=== PATIENT | female | born 1950 | race American Indian/Alaskan Native ===

== ENCOUNTER 2017-01-29 08:19 | Outpatient (CLI) | payer OTHER ==
--- NOTE | 2017-01-29 09:00 | Mammography Report ---
Bilateral digital screening mammogram with CAD. Comparison study is dated January 19, 2016. Findings: There is a small parenchymal asymmetry in the upper right breast seen on MLO projection. There scattered fibroglandular densities bilaterally. No architectural distortion or suspicious calcifications. Impression: Right parenchymal asymmetry. BI-RADS code: 0. Recommendation: Spot compression image, 90 degree view, and ultrasound if needed.
== END 2017-01-29 08:20 | disposition home or self-care (01) ==
LOC: MAMMO 08:19
PROVIDERS: ATTEND Family Medicine
DX: Z12.31 Encounter for screening mammogram for malignant neoplasm of breast (principal)
CPT/HCPCS: 77067; G0202